=== PATIENT | female | born 1985 | race Caucasian/White ===

== ENCOUNTER 2022-10-05 17:33 | Emergency (ER) | payer BC, SELFPAY ==
[2022-10-05 17:41] VITALS: BP 128/88; PULSE 109; RESP 14; TEMP 36.8; O2SAT 98; BMI 26.3
--- NOTE | 2022-10-05 18:22 | ED.FEVER ---
HPI - Fever General Chief Complaint: Fever Stated Complaint: Took a medication, doesn't know what's going on Time Seen by Provider: 10/05/22 17:39 History of Present Illness HPI Narrative: 37-year-old woman presenting to the emergency department apparently brought by her father with complaint of pain all over, sore throat, fever. Yesterday measured temperature to 105 maybe even 106. Was evaluated she says by virtual doc and prescribe Tamiflu. No known exposure to influenza. Today however her daughter tested positive for strep throat. Has been treating with ibuprofen acetaminophen. Hydrating with Pedialyte. Has been in bed since yesterday. Not eating. No rashes she says. No cough. No nausea no vomiting. No diarrhea. Related Data Home Medications Medication Instructions Recorded Confirmed levothyroxine 100 mcg tablet 100 mcg PO DAILY 10/05/22 10/05/22 (Synthroid) Allergies Allergy/AdvReac Type Severity Reaction Status Date / Time No Known Drug Allergies Allergy Verified 10/05/22 17:46 Review of Systems Status of ROS Reports: 6 or more systems reviewed and unremarkable except as noted in History and below PFSH [facility] Social History Smoking Status: Never smoker How often do you have a drink containing alcohol: never AUDIT-C Alcohol total score: 0 Non-prescribed substance use: denies use service: No Exam Narrative Exam Narrative: Prefers to lay huddled up on her left side in bed under blankets. Speaking minimally. Eyes closed. Is not labored in her breathing. Is not tachypneic. Skin feels quite warm though vitals are noted her to be afebrile. There is some mild erythema about her throat. She is quite tender to palpation about throat. There is some anterior cervical lymphadenopathy but symmetrical. Oropharynx is moist she has redness in the posterior oropharynx with some small blister formation on the posterior left soft palate adjacent to the uvula. Lungs are clear. heart with tachycardic rate in a regular rhythm. Abdomen is soft extremities are without edema. Moving all extremities without difficulty. Cranial nerves appear to be intact. Const Vital Signs, click to edit/add: Vital Signs - 24 hr 10/05/22 17:41 10/05/22 19:02 Temperature 98.3 F 98.2 F Pulse Rate [Pulse Oximeter] 109 H Respiratory Rate 14 Blood Pressure [Right Upper Arm] 128/88 Pulse Oximetry 98 Oxygen Delivery Method Room Air Documenting provider has reviewed patient's vital signs: yes Course Vital Signs Vital signs: Initial Vital Signs Temperature 98.3 F 10/05/22 17:41 Temperature Source Temporal Artery Scan 10/05/22 17:41 Pulse Rate 109 H 10/05/22 17:41 Pulse Rhythm 10/05/22 17:41 Respiratory Rate 14 10/05/22 17:41 Blood Pressure 128/88 10/05/22 17:41 Blood Pressure Mean 101 10/05/22 17:41 Blood Pressure Position Sitting 10/05/22 17:41 Pulse Oximetry 98 10/05/22 17:41 Oxygen Delivery Method 10/05/22 17:41 Vital Signs Temperature 98.3 F 10/05/22 17:41 Pulse Rate 109 H 10/05/22 17:41 Respiratory Rate 14 10/05/22 17:41 Blood Pressure 128/88 10/05/22 17:41 Pulse Oximetry 98 10/05/22 17:41 Oxygen Delivery Method 10/05/22 17:41 Temperature 98.2 F 10/05/22 19:02 Pulse Rate 109 H 10/05/22 17:41 Respiratory Rate 14 10/05/22 17:41 Blood Pressure 128/88 10/05/22 17:41 Pulse Oximetry 98 10/05/22 17:41 Oxygen Delivery Method 10/05/22 17:41 MDM - Fever MDM Narrative Medical decision making narrative: COVID and influenza testing is pending. Strep testing pending. I think the latter most likely. I discussed treatment options. She says she would like an IV. Stomach could be nonspecific viral illness. Does not seem to be demonstrating meningeal signs. IV normal saline ketorolac is been ordered. On reassessment is markedly improved. Strep testing was positive. Discussed options. She would like long-acting penicillin injection. This was given. Also due to discomfort/pharyngitis I did prescribe dexamethasone 1 dose. Lab Data Attestation: I reviewed the patient's lab results. Labs: Lab Results 10/05/22 10/05/22 Range/Units 17:51 17:51 SARS-CoV-2 (PCR) Negative SARS-CoV-2 (Negative) Influenza Type A (PCR) Negative PCR FLU A (Negative) Influenza Type B (PCR) Negative PCR FLU B (Negative) Group A Strep DNA DETECTED A (Not Detectd) Discharge Plan Discharge Clinical Impression: Fever, Myalgia, Acute streptococcal pharyngitis Patient Disposition: Home w/ Parent or Adult Condition: Improved Instructions: Strep Throat (ED) Additional Instructions: I would stop your Tamiflu. Can take up to 800 mg of ibuprofen per dose or up to 500 mg of naproxen 2 times daily. Either can be combined with acetaminophen up to 1000 mg per dose. Might try anesthetic throat lozenges or sprays like Sucrets or Chloraseptic. Focus on hydration. Sleep under the mist of a cool mist humidifier. Boil everybody's toothbrushes for 3 minutes and then separate them. Then every 3 days over the next week and half poorly toothbrushes of those have been sick. Prescriptions: No Action levothyroxine [Synthroid] 100 mcg tablet 100 mcg PO DAILY Stand Alone Forms: [employer] Info Instructions
[2022-10-05 18:41] LABS: PCR FLU A Negative PCR FLU A (Negative); PCR FLU B Negative PCR FLU B (Negative)
[2022-10-05 18:59] LABS: SARS PCR* Negative SARS-CoV-2 (Negative); Strep A DNA Probe* DETECTED (Not Detectd)
[2022-10-05] MEDS: KETOROLAC 30 MG/ML inj IVP (18:59)
[2022-10-05] MEDS: 0.9 % SODIUM CHLORIDE 1000 ml 1,000 ML IV (19:00)
[2022-10-05 19:02] VITALS: TEMP 36.8
[2022-10-05] MEDS: PENICILLIN G BENZATHINE 1,200,000 UNIT/2 ML inj 1200000 UNIT IM (20:01)
[2022-10-05] MEDS: dexAMETHasone 10 MG/ML inj IVP (20:09)
== END 2022-10-05 20:25 | disposition home or self-care (01) ==
LOC: ED 20:24
PROVIDERS: Emergency Provider Family Medicine; PCP Nurse Practitioner Adult Health
DX: J02.0 Streptococcal pharyngitis (principal); R50.9 Fever, unspecified
CPT/HCPCS: 87631; 87651; 96372; 96374; 96375; 99283; 99284; J0561; J1100; J1885; J7030